=== PATIENT | male | born 1975 | race Native Hawaiian/Other Pacific Islander ===

== ENCOUNTER 2018-06-01 15:05 | Emergency (ER) | payer OTHER ==
[~2018-06-01] VITALS: Ht 190.5 cm; Wt 108.9 kg
[2018-06-01 16:10] VITALS: BP 151/89; TEMP 97.9
== END 2018-06-01 16:10 ==
LOC: ED 15:05
PROC: 0HQ1XZZ Repair Face Skin, External Approach (ICD-10-PCS; principal; 2018-06-01)
DX: S01.111A Laceration without foreign body of right eyelid and periocular area, initial encounter (principal); W17.89XA Other fall from one level to another, initial encounter; Y93.55 Activity, bike riding
CPT/HCPCS: 90471; 90715; 99283